=== PATIENT | female | born 1980 | race Caucasian/White ===

== ENCOUNTER 2019-01-26 19:11 | Emergency (ER) | payer MEDICAID ==
[~2019-01-26] VITALS: Ht 152.4 cm; Wt 54.5 kg
--- NOTE | 2019-01-26 19:23 | NUR ---
PATIENT REFUSES TO STATE LAST NAME, STATES SHE WANTS TO BE "ANONYMOUS" STATES NAME IS "BELA... 82".
[2019-01-26 19:55] LABS: BASOPHILS % (AUTO) 0.4 % (0-1); EOSINOPHILS % (AUTO) 0 % (0-6); HEMATOCRIT 40.5 % (35.0-45.0); HEMOGLOBIN 13.9 g/dl (12.0-16.0); LYMPHOCYTES # (AUTO) 4.2 X10'3 (1.1-4.8); LYMPHOCYTES % (AUTO) 45.4 % (21-51); MEAN CORPUSCULAR HEMOGLOBIN 31.3 PG (27.0-31.0); MEAN CORPUSCULAR HGB CONC 34.3 g/dL (33.0-36.5); MEAN CORPUSCULAR VOLUME 91.4 FL (78-98); MEAN PLATELET VOLUME 7.4 FL (7.4-10.4); MONOCYTES # (AUTO) 0.7 X10'3 (0-0.9); MONOCYTES % (AUTO) 7.2 % (2-12); NEUTROPHILS # (AUTO) 4.3 X10'3 (1.8-7.7); PLATELET COUNT 252 X10'3 (140-440); RED BLOOD COUNT 4.43 X10'6 (4.20-5.60); RED CELL DISTRIBUTION WIDTH 13.2 % (11.5-14.5); WHITE BLOOD COUNT 9.1 X10'3 (4.5-11.0)
[2019-01-26 20:09] LABS: ALANINE AMINOTRANSFERASE 19 U/L (12-78); ALBUMIN 3.3 G/DL (3.4-5.0); ALBUMIN/GLOBULIN RATIO 0.9 (1.1-1.5); ALKALINE PHOSPHATASE 129 IU/L (46-116); ANION GAP 6 (8-16); ASPARTATE AMINO TRANSFERASE 17 U/L (10-37); BILIRUBIN,TOTAL 0.3 MG/DL (0.1-1.0); BLOOD UREA NITROGEN 8 MG/DL (7-18); BUN/CREATININE RATIO 11.8 (6.6-38.0); CALCIUM 8.4 MG/DL (8.5-10.1); CHLORIDE 105 MMOL/L (99-107); CREATININE 0.68 MG/DL (0.40-0.90); GLUCOSE 126 MG/DL (70-104); POTASSIUM 3.6 MMOL/L (3.5-5.1); SODIUM 140 MMOL/L (135-145); TOTAL CARBON DIOXIDE 28.9 MMOL/L (24-32); TOTAL PROTEIN 6.9 G/DL (6.4-8.2); eGFR > 90 ML/MIN
[2019-01-26 20:16] LABS: ETHANOL < 0.010 GM/DL (0.0-0.010)
[2019-01-26 20:18] LABS: URINE HCG NEGATIVE (NEG)
[2019-01-26 20:19] LABS: CLARITY,URINE SLIGHTLY CLOUDY (Clear); COLOR,URINE YELLOW (Yellow); GLUCOSE, URINE NEGATIVE (Neg); KETONES,URINE NEGATIVE (Neg); LEUKOCYTE ESTERASE ,URINE NEGATIVE (Neg); NITRITES, URINE NEGATIVE (Neg); OCCULT BLOOD,URINE LARGE (Neg); PROTEIN,URINE NEGATIVE (Neg); UROBILINOGEN,URINE 0.2 E.U/dL (0.2-1.0)
[2019-01-26 20:23] LABS: UA COLLECTION TYPE CLN CATCH MIDSTREAM
[2019-01-26 20:27] LABS: URINE AMPHETAMINE SCREEN POSITIVE (Neg); URINE BARBITUATE SCREEN NEGATIVE (Neg); URINE BENZODIAZEPINES SCREEN NEGATIVE (Neg); URINE CANNABINOID SCREEN POSITIVE (Neg); URINE COCAINE SCREEN NEGATIVE (Neg); URINE METHADONE SCREEN NEGATIVE (Neg); URINE OPIATE SCREEN NEGATIVE (Neg); URINE PHENCYCLIDINE SCREEN NEGATIVE (Neg)
[2019-01-26 20:32] LABS: SQUAMOUS EPITHELIAL CELL,UR MANY /LPF (FEW)
[2019-01-26 20:33] LABS: BACTERIA,URINE FEW /HPF (Neg); RBC,URINE 0-2 /HPF (0-2)
[2019-01-26 20:34] LABS: CAL OXALATE CRYSTALS 3+ /HPF (NEGATIVE); MUCUS STRANDS MANY /LPF (Neg)
[2019-01-26] MEDS ORDERED: NO HOME MEDS (22:07)
--- NOTE | 2019-01-26 23:11 | NUR ---
covering RN for break. visual check of pt done, pt laying calmly with eyes closed on left side, respirations WNL.
--- NOTE | 2019-01-27 07:43 | NUR ---
Received Pt in bed sleeping w/o distress at change of shift.
--- NOTE | 2019-01-27 10:30 | NUR ---
Pt ate some of breakfast. Spent most of morning sleeping. Tearful at times and c/o feeling sick. Denies meth use, stating "i havnt used in over a month", even though Tx positive for meth. Encouraged fluids and got her an extra juice.
--- NOTE | 2019-01-27 14:00 | NUR ---
Pt resting and sleeping in bed. Ate part of lunch and overall feels "sick", yet unable to be more specific with symptoms. Loree Cisneros called to get nurse to nurse report.
--- NOTE | 2019-01-27 14:18 | NUR ---
Pt calling out for Tylenol. When asked why she felt as though she needed Tylenol, pt states she's "burning up". Oral temp 97.8 degrees.
--- NOTE | 2019-01-27 17:26 | NUR ---
Pt accepted at [facility] per [facility]. Pt will be picked up at approx 1930.
--- NOTE | 2019-01-27 18:48 | NUR ---
ASSUMED CARE OF PATIENT WHO IS LYING ON HER LEFT SIDE WITH THE BLANKET OVER HER HEAD . BREATHING INDEPENDENTLY REPOSITIONS HER SELF WHEN TOUCHED. ENCOURGAGED PT TO EAT DINNER PT DENCLINES AT THIS TIME
[2019-01-27 19:55] VITALS: BP 96/48
== END 2019-01-27 19:45 ==
LOC: ER 19:12
DX: F31.9 Bipolar disorder, unspecified (principal); F29 Unspecified psychosis not due to a substance or known physiological condition; F41.9 Anxiety disorder, unspecified; F15.90 Other stimulant use, unspecified, uncomplicated; F11.90 Opioid use, unspecified, uncomplicated; Z87.891 Personal history of nicotine dependence
CPT/HCPCS: 36415; 80053; 80305; 80320; 81001; 81025; 84443; 85025; 99285